=== PATIENT | male | born 1980 | race Caucasian/White ===

== ENCOUNTER 2017-11-03 08:31 | Inpatient (IN) | payer OTHER ==
[~2017-11-03 08:31] MED LIST: PROPOFOL 200 MG INJ; ROCURONIUM 50 MG INJ
[2017-11-03] MEDS ORDERED: ROCURONIUM 50 MG INJ (09:23)
[2017-11-03] MEDS ORDERED: CEFAZOLIN 1 GM INJ (09:23)
[2017-11-03] MEDS ORDERED: NEOSTIGMINE 3 MG/3 ML SYRINGE ×2 (09:23→13:18)
[2017-11-03] MEDS ORDERED: MIDAZOLAM 1 MG/ML 2 ML INJ (09:23)
[2017-11-03] MEDS ORDERED: GLYCOPYRROLATE 0.4 MG INJ ×2 (09:23→13:18)
[2017-11-03] MEDS ORDERED: PROPOFOL 20 ML (09:23)
[2017-11-03] MEDS ORDERED: DEXAMETHASONE 4 MG/ML 1 ML INJ (09:23)
[2017-11-03] MEDS ORDERED: ONDANSETRON 4 MG INJ (09:23)
[2017-11-03] MEDS ORDERED: DIPHENHYDRAMINE 50 MG INJ IV (10:00)
[2017-11-03] MEDS ORDERED: NALOXONE (0.4 MG/ML) INJ IV (10:00)
[2017-11-03] MEDS ORDERED: ACETAMINOPHEN 325 MG TAB PO (10:00)
[2017-11-03] MEDS: CEFAZOLIN 1 GM/50 ML (PMX) 50 ML IVPB ×2 (10:00→20:07)
[2017-11-03] MEDS ORDERED: HYDROmorphONE 0.5 MG/0.5 ML SYG IV (10:00)
[2017-11-03] MEDS ORDERED: BISACODYL 10 MG SUPP PR (10:00)
[2017-11-03] MEDS ORDERED: AL HYDROX/MG HYDROX/SIMETH 30 ML CUP PO (10:00)
[2017-11-03] MEDS ORDERED: CA CHLORIDE 10% 10 ML SYRINGE (10:32)
[2017-11-03] MEDS ORDERED: FENTAnyl 50 MCG/ML VIAL IV ×2 (11:00)
[2017-11-03] MEDS ORDERED: hydrALAzine 20 MG INJ IV (11:00)
[2017-11-03] MEDS ORDERED: HYDROmorphONE 1 MG/5 ML IV SYRINGE IV ×3 (11:00)
[2017-11-03] MEDS ORDERED: OXYCODONE/ACETAMINOPHEN (5/325) TAB PO ×2 (11:00)
[2017-11-03] MEDS ORDERED: TRIMETHOBENZAMIDE 100 MG/ML VIAL IM (11:00)
[2017-11-03] MEDS ORDERED: MIDAZOLAM 1 MG/ML 2 ML INJ IV (11:00)
[2017-11-03] MEDS ORDERED: EPHEDrine SULFATE 50 MG/5 ML SYG IV (11:00)
[2017-11-03] MEDS ORDERED: MEPERIDINE 25 MG INJ IV (11:00)
[2017-11-03] MEDS ORDERED: LABETALOL HCL 20MG INJ IV (11:00)
[2017-11-03] MEDS ORDERED: IPRATROPIUM (NEB) 0.5 MG/2.5 ML AMP HHN (11:00)
[2017-11-03] MEDS ORDERED: ALBUTEROL 0.083% (NEB) 2.5 MG/3 ML AMP HHN (11:00)
[2017-11-03] MEDS: GABAPENTIN 400 MG CAP PO ×2 (13:00→20:01)
[2017-11-03] MEDS: BUPIVACAINE 0.25%/EPI (SDV) 30 ML INJ (13:10)
[2017-11-03] MEDS: CEFAZOLIN 1 GM INJ (13:11)
[2017-11-03] MEDS: SURGIFOAM POWDER 1 GM KIT (13:11)
[2017-11-03] MEDS: GELATIN SIZE 100 SPONGE ×2 (13:11→14:01)
[2017-11-03] MEDS: THROMBIN 5000 UNIT VIAL ×4 (13:12→14:00)
[2017-11-03] MEDS: HEPARIN 1000 UNITS/ML 10 ML INJ (13:12)
[2017-11-03] MEDS: HYDROmorphONE 0.2 MG/ML PCA IV (15:26)
[2017-11-03] MEDS ORDERED: FENTAnyl 50 MCG/ML VIAL (15:45)
[2017-11-03] MEDS: ONDANSETRON 4 MG INJ IV ×2 (15:50→19:58)
[2017-11-03] MEDS: FENTAnyl 50 MCG/ML VIAL IV (15:51)
[2017-11-03] MEDS: DIPHENHYDRAMINE 50 MG INJ IV (15:51)
[2017-11-03] MEDS: D5W-0.45 NACL + KCL 20 MEQ 1,000 ML IV (17:01)
[2017-11-03] MEDS: CEPASTAT LOZENGE MT (19:57)
[2017-11-03] MEDS: DOCUSATE SODIUM 100 MG CAP PO (21:00)
[2017-11-03] MEDS: CYCLOBENZAPRINE 10 MG TAB PO (22:41)
[2017-11-04] MEDS: D5W-0.45 NACL + KCL 20 MEQ 1,000 ML IV (01:30)
[2017-11-04] MEDS: CEFAZOLIN 1 GM/50 ML (PMX) 50 ML IVPB (05:22)
[2017-11-04] MEDS: PANTOPRAZOLE 40 MG INJ IV (05:23)
[2017-11-04 05:50] LABS: ADD MAN DIFF? NO
[2017-11-04 06:01] LABS: WHITE BLOOD COUNT 13.4 10^3/ul (4.8-10.8)
[2017-11-04 06:01] LABS: BASOPHILS % 0.1 % (0.0-2.0); HEMATOCRIT 36.2 % (42.0-52.0); HEMOGLOBIN 12.6 g/dl (14.0-18.0); IMMATURE GRANS #M 0.07 10^3/ul; IMMATURE GRANS % (M) 0.5 %; LYMPHOCYTES # 0.9 10^3/ul (0.8-2.9); LYMPHOCYTES % 6.8 % (15.0-51.0); MEAN CORPUSCULAR HEMOGLOBIN 30.3 pg (29.0-33.0); MEAN CORPUSCULAR HGB CONC 34.8 g/dl (32.0-37.0); MEAN PLATELET VOLUME 10.3 fl (7.4-10.4); MONOCYTE # 1.3 10^3/ul (0.3-0.9); NEUTROPHIL # 11.1 10^3/ul (1.6-7.5); NEUTROPHILS % 82.6 % (39.0-77.0); PLATELET COUNT 221 10^3/UL (140-415); RED BLOOD COUNT 4.16 10^6/ul (4.70-6.10); RED CELL DISTRIBUTION WIDTH 12.8 % (11.5-14.5)
[2017-11-04 06:27] LABS: ANION GAP 14 (8-16); BLOOD UREA NITROGEN 13 mg/dl (7-20); CALCIUM 8.7 mg/dl (8.4-10.2); CARBON DIOXIDE 23 mmol/L (21-31); CHLORIDE 105 mmol/L (97-110); CREATININE 0.87 mg/dl (0.61-1.24); GLUCOSE 158 mg/dl (70-220); MAGNESIUM 1.6 mg/dl (1.7-2.5); POTASSIUM 4.5 mmol/L (3.5-5.1); SODIUM 137 mmol/L (135-144)
[2017-11-04] MEDS: DOCUSATE SODIUM 100 MG CAP PO (08:37)
[2017-11-04] MEDS: DILTIAZEM (CD) 120 MG CAP PO (08:37)
[2017-11-04] MEDS: GABAPENTIN 400 MG CAP PO ×2 (08:37→13:46)
[2017-11-05] MEDS ORDERED: oxyCODONE 5 MG TAB PO (10:00)
== END 2017-11-04 15:00 | disposition home or self-care (01) | DRG 455 ==
LOC: REC 08:31 → MS1 16:45
PROC: 0SG30A0 Fusion of Lumbosacral Joint with Interbody Fusion Device, Anterior Approach, Anterior Column, Open Approach (ICD-10-PCS; principal; 2017-11-03 11:00)
PROC: 0SG30K1 Fusion of Lumbosacral Joint with Nonautologous Tissue Substitute, Posterior Approach, Posterior Column, Open Approach (ICD-10-PCS; 2017-11-03 11:00)
PROC: 0ST40ZZ Resection of Lumbosacral Disc, Open Approach (ICD-10-PCS; 2017-11-03 11:00)
PROC: 07DR3ZZ Extraction of Iliac Bone Marrow, Percutaneous Approach (ICD-10-PCS; 2017-11-03 11:00)
DX: M51.17 Intervertebral disc disorders with radiculopathy, lumbosacral region (principal); M48.07 Spinal stenosis, lumbosacral region
CPT/HCPCS: 72110; 80048; 83735; 85025; 86850; 86900; 86901; 86999; 87086; 97116; 97161; 97530

== ENCOUNTER 2018-10-11 11:36 | Day surgery (SDC) | payer OTHER, BC ==
[2018-10-11] MEDS: LACTATED RINGER'S 1,000 ML IV (07:00)
[~2018-10-11 11:36] MED LIST changes: +CEFAZOLIN 2 GM/50 ML (PMX) 50 ML IVPB; -PROPOFOL 200 MG INJ; -ROCURONIUM 50 MG INJ
[2018-10-11] MEDS ORDERED: NEOSTIGMINE 3 MG/3 ML SYRINGE (14:16)
[2018-10-11] MEDS ORDERED: FENTAnyl 50 MCG/ML VIAL ×2 (14:16→15:52)
[2018-10-11] MEDS ORDERED: ROCURONIUM 50 MG INJ (14:16)
[2018-10-11] MEDS ORDERED: GLYCOPYRROLATE 0.4 MG INJ (14:16)
[2018-10-11] MEDS ORDERED: CEFAZOLIN 1 GM INJ (14:16)
[2018-10-11] MEDS ORDERED: PROPOFOL 20 ML (14:16)
[2018-10-11] MEDS ORDERED: MIDAZOLAM 1 MG/ML 2 ML INJ (14:16)
[2018-10-11] MEDS ORDERED: DEXAMETHASONE 4 MG/ML 5 ML INJ (14:17)
[2018-10-11] MEDS ORDERED: ONDANSETRON 4 MG INJ (14:17)
[2018-10-11] MEDS ORDERED: THROMBIN 5000 UNIT (RECOTHROM) VIAL (14:27)
[2018-10-11] MEDS ORDERED: GELATIN SIZE 100 SPONGE (14:27)
[2018-10-11] MEDS ORDERED: D5W-0.45 NACL + KCL 20 MEQ 1,000 ML IV (14:34)
[2018-10-11] MEDS ORDERED: HYDROmorphONE 1 MG/5 ML IV SYRINGE IV ×3 (15:00)
[2018-10-11] MEDS ORDERED: CYCLOBENZAPRINE 10 MG TAB PO (15:00)
[2018-10-11] MEDS ORDERED: ACETAMINOPHEN 325 MG TAB PO (15:00)
[2018-10-11] MEDS ORDERED: LABETALOL HCL 20MG INJ IV (15:00)
[2018-10-11] MEDS ORDERED: BISACODYL 10 MG SUPP PR (15:00)
[2018-10-11] MEDS ORDERED: NALOXONE (0.4 MG/ML) INJ IV (15:00)
[2018-10-11] MEDS ORDERED: DIPHENHYDRAMINE 50 MG INJ IV ×2 (15:00)
[2018-10-11] MEDS ORDERED: CEPASTAT LOZENGE MT (15:00)
[2018-10-11] MEDS ORDERED: IPRATROPIUM (NEB) 0.5 MG/2.5 ML AMP HHN (15:00)
[2018-10-11] MEDS ORDERED: DIPHENHYDRAMINE 25 MG CAP PO (15:00)
[2018-10-11] MEDS ORDERED: EPHEDrine 25 MG/5 ML SYG IV (15:00)
[2018-10-11] MEDS ORDERED: FENTAnyl 50 MCG/ML VIAL IV ×2 (15:00)
[2018-10-11] MEDS ORDERED: MEPERIDINE 25 MG INJ IV (15:00)
[2018-10-11] MEDS ORDERED: OXYCODONE/ACETAMINOPHEN (5/325) TAB PO ×2 (15:00)
[2018-10-11] MEDS: CEFAZOLIN 1 GM/50 ML (PMX) 50 ML IVPB (15:00)
[2018-10-11] MEDS ORDERED: HYDROmorphONE 0.5 MG/0.5 ML SYG IV (15:00)
[2018-10-11] MEDS ORDERED: TRIMETHOBENZAMIDE 100 MG/ML VIAL IM (15:00)
[2018-10-11] MEDS ORDERED: MIDAZOLAM 1 MG/ML 2 ML INJ IV (15:00)
[2018-10-11] MEDS ORDERED: hydrALAzine 20 MG INJ IV (15:00)
[2018-10-11] MEDS ORDERED: HYDROCODONE/APAP (10/325) TAB PO ×2 (15:00)
[2018-10-11] MEDS ORDERED: ALBUTEROL 0.083% (NEB) 2.5 MG/3 ML AMP HHN (15:00)
[2018-10-11] MEDS ORDERED: ONDANSETRON 4 MG INJ IV ×2 (15:00)
[2018-10-11] MEDS ORDERED: AL HYDROX/MG HYDROX/SIMETH 30 ML CUP PO (15:00)
[2018-10-11] MEDS: BUPIVACAINE 0.25%/EPI (SDV) 30 ML INJ (15:34)
[2018-10-11] MEDS: BUPIVACAINE 0.25% (MPF) 30 ML INJ (15:35)
[2018-10-11] MEDS: POLYMYXIN/BACITRACIN 1L IRRIG (15:35)
[2018-10-11] MEDS: FENTAnyl 50 MCG/ML VIAL IV ×2 (16:02→16:13)
[2018-10-11] MEDS ORDERED: DOCUSATE SODIUM 100 MG CAP PO (21:00)
== END 2018-10-11 18:00 | disposition home or self-care (01) ==
LOC: SDS 11:36 → MS1 17:04 → SDS 18:00
DX: T84.84XA Pain due to internal orthopedic prosthetic devices, implants and grafts, initial encounter (principal); M54.5 Low back pain; Y79.3 Surgical instruments, materials and orthopedic devices (including sutures) associated with adverse incidents; Y83.8 Other surgical procedures as the cause of abnormal reaction of the patient, or of later complication, without mention of misadventure at the time of the procedure
CPT/HCPCS: 22852; 72100; 86999; 88300